=== PATIENT | female | born 1975 | race Asian ===

== ENCOUNTER 2016-12-09 12:26 | Emergency (ER) | payer OTHER ==
[~2016-12-09 12:26] MED LIST: ALPRAZOLAM0.25 M3 PO; AMITRIPTYLINE H25 M1 PO; AMOX TR-K CLV1 EAC4 PO; AMOXICILLIN500 M1 PO; ANUCORT-HC25 M2 RC; BENTYL20 M1 PO; CELEXA20 M2 PO; CEPHALEXIN500 M2 PO; CIPRO500 M2 PO; CIPROFLOXACIN500 M3 PO; CYCLOBENZAPRINE5 M1 PO; DICYCLOMINE HCL20 M1 PO; FAMOTIDINE20 M3 PO; FLAGYL500 M1 PO; FLONASE ALLERG9.9 ML; HYDROCODON-ACE1 EA16 PO; IBUPROFEN800 M1 PO; METRONIDAZOLE500 M3 PO; MIRALAX17 G2 PO; PREVACID30 M2 PO; PRILOSEC OTC20 M1 PO; PROTONIX40 M2 PO; RANITIDINE HCL150 M3 PO; TYLENOL WITH C1 EACH PO
[2016-12-09] MEDS ORDERED: CETIRIZINE HCL10 M1 PO (13:04)
[2016-12-09] MEDS ORDERED: WAL-DRYL25 M1 PO (13:04)
[2016-12-09] MEDS ORDERED: LIDOCAINE35.44 G1 TP (13:05)
[2016-12-09] MEDS ORDERED: IRON325 M3 PO (13:06)
[2016-12-09 13:26] LABS: BASO % 0.1 % (0-2); EOSINOPHIL ABSOLUTE COUNT 0.1 tho/cmm (0.0-0.7); HCT-HEMATOCRIT 38.5 % (34.0-49.0); HGB-HEMOGLOBIN 13.2 gm/dl (12.0-15.5); IMMATURE GRANULOCYTES ABSOLUTE 0.01 tho/cmm (0-0.03); IMMATURE GRANULOCYTES PERCENT 0.1 % (0-0.3); LYMPH % 24.6 % (20-45); LYMPH ABSOLUTE COUNT 2.3 tho/cmm (0.8-4.5); MCH (MEAN CORPUSCULAR HGB) 28.8 pg (28.0-32.0); MCHC MEAN CORPUSCULAR HGB CONC 34.3 % (32.0-36.0); MCV (MEAN CELL VOLUME) 84.1 fl (82.0-96.0); MONOCYTE ABSOLUTE COUNT 0.6 tho/cmm (0.0-1.2); NEUTROPHIL ABSOLUTE COUNT 6.2 tho/cmm (1.6-8.0); NEUTROPHIL-AUTOMATED 6.2 tho/cmm (1.6-8.0); NEUTROPHILS % 67.2 % (40-80); PLATELET COUNT 265 tho/cmm (150-450); RED BLOOD COUNT 4.58 mil/cmm (4.00-5.20); RED CELL DISTRIBUTION WIDTH 14.4 % (12.4-16.4); WHITE BLOOD COUNT 9.2 tho/cmm (4.0-10.0)
[2016-12-09 13:36] LABS: INR 1.1 INR (0.9-1.1); PROTHROMBIN TIME 12.8 SECONDS (9.0-13.6)
[2016-12-09 13:38] LABS: PREGNANCY-SERUM NEGATIVE (NEGATIVE)
[2016-12-09 13:45] LABS: ALB/GLOB RATIO 0.9 (0.8-2.0); ALBUMIN 3.8 g/dl (3.5-5.0); ALKALINE PHOSPHATASE 63 U/L (33-138); ALT/SGPT 22 U/L (12-78); ANION GAP 14 mmol/L (0-20); AST/SGOT 18 U/L (10-40); BILIRUBIN,TOTAL 0.3 mg/dl (0-1.5); BLOOD UREA NITROGEN 9 mg/dl (6-24); CALCIUM 8.3 mg/dl (8.5-10.5); CARBON DIOXIDE-VENOUS 24 mmol/L (22-32); CHLORIDE 107 mmol/l (96-110); CREATININE 0.66 mg/dl (0.50-1.10); GLUCOSE 85 mg/dL (70-110); LIPASE 85 U/L (73-393); POTASSIUM 3.8 mmol/L (3.7-5.1); SODIUM 141 mmol/L (135-145); eGFR VALUE FOR BLACK >90 mL/Min
[2016-12-09] MEDS ORDERED: AMBIEN5 M1 PO (16:17)
[2016-12-09] MEDS ORDERED: OMEPRAZOLE20 M3 PO (16:17)
== END 2016-12-09 16:25 ==
LOC: EDMED 12:26
PROVIDERS: Emergency Medicine
DX: R10.9 Unspecified abdominal pain (principal); R11.0 Nausea; R50.9 Fever, unspecified; G47.00 Insomnia, unspecified; Z98.890 Other specified postprocedural states
CPT/HCPCS: C9113; J2405; J7030; Q9967